=== PATIENT | female | born 1955 ===

== ENCOUNTER 2016-06-18 10:26 | Observation (INO) | payer MEDICAID ==
[2016-06-18] VITALS (10 sets, daily range): BP systolic 105–144; BP diastolic 66–93; PULSE 64–121; RESP 16; TEMP 97.5–98.7; O2SAT 96–100
[~2016-06-18] VITALS: Ht 154.9 cm; Wt 51.3 kg
[2016-06-18] MEDS ORDERED: NITROGLYCERIN 0.4 MG SL 25 TABS/BTL SL STA (10:51)
[2016-06-18] MEDS ORDERED: ASPIRIN 81 MG CHEW TAB PO STA (10:51)
[2016-06-18] MEDS ORDERED: SODIUM CHLOR 0.9% 1000 ML INJ 1,000 ML IV ONE (10:51)
--- NOTE | 2016-06-18 10:56 | PD ---
HPI Chief Complaint: Respiratory Symptoms Time Seen by Provider: 10:42 Travel History International Travel<30 days: No Contact w/Intl Traveler<30days: No Traveled to known affect area: No History of Present Illness HPI This 60-year-old female says she has been sick for the last 4 or 5 days. She's been having squeezing sensation around her chest. She has been short of breath with minimal exertion. She has been sweaty at times. She has no known history of heart disease. She smokes a pack a day. She has not had fever or chills. She says that last night she broke out in a sweat. She has been feeling extremely tired. She has been nauseated at times. She has no history of hypertension or diabetes. She has felt her heart racing at times PFSH Past Medical History Hx Anticoagulant Therapy: No Cardiovascular Problems: Yes (CHOL) High Cholesterol: Yes Diabetes: No Diminished Hearing: No GERD: Yes Tetanus Vaccination: Unknown ?: Not Social History Alcohol Use: Yes (occ) Tobacco Use: Yes (1ppd) Substance Use: No Allergies-Medications (Allergen,Severity, Reaction): Coded Allergies: Darvocet-N 100 (Verified Allergy, Severe, 06/18/16) Percocet (Verified Allergy, Severe, 06/18/16) Review of Systems General / Constitutional: No: Fever, Chills Eyes: No: Diploplia, Blurred Vision HENT: No: Headaches, Vertigo Cardiovascular: Positive: Chest Pain or Discomfort, Tachycardia Respiratory: Positive: Shortness of Breath Gastrointestinal: Positive: Nausea Genitourinary: No: Urgency, Frequency Musculoskeletal: No: Myalgias Skin: No Rash, No Dryness Neurologic: Positive: Weakness Endocrine: No: Heat Intolerance Hematologic/Lymphatic: No: Easy Bruising Physical Exam Narrative GENERAL: Well-developed female SKIN: Focused skin assessment warm/dry. HEAD: Atraumatic. Normocephalic. EYES: Pupils equal and round. No scleral icterus. No injection or drainage. ENT: No nasal bleeding or discharge. Mucous membranes pink and moist. NECK: Trachea midline. No JVD. CARDIOVASCULAR: Regular rate and rhythm. No murmur appreciated. RESPIRATORY: No accessory muscle use. Clear to auscultation. Breath sounds equal bilaterally. GASTROINTESTINAL: Abdomen soft, non-tender, nondistended. Hepatic and splenic margins not palpable. MUSCULOSKELETAL: No obvious deformities. No clubbing. No cyanosis. No edema. NEUROLOGICAL: Awake and alert. No obvious cranial nerve deficits. Motor grossly within normal limits. Normal speech. PSYCHIATRIC: Appropriate mood and affect; insight and judgment normal. Data Data Last Documented VS Vital Signs Date Time Temp Pulse Resp B/P Pulse Ox O2 Delivery O2 Flow Rate FiO2 06/18/16 11:02 100 Room Air 06/18/16 10:39 100 20 06/18/16 10:30 98.7 134/93 Orders Troponin I (06/18/16 10:51) Ckmb (Isoenzyme) Profile (06/18/16 10:51) Complete Blood Count With Diff (06/18/16 10:51) Basic Metabolic Panel (Bmp) (06/18/16 10:51) Magnesium (Mg) (06/18/16 10:51) Prothrombin Time / Inr (Pt) (06/18/16 10:51) Act Partial Throm Time (Ptt) (06/18/16 10:51) B-Type Natriuretic Peptide (06/18/16 10:51) Chest, Single Ap (06/18/16 10:51) Electrocardiogram (06/18/16 10:51) Oxygen Administration (06/18/16 10:51) Iv Access Insert/Monitor (06/18/16 10:51) Oximetry (06/18/16 10:51) Sodium Chlor 0.9% 1000 Ml Inj (Ns 1000 M (06/18/16 10:51) Sodium Chloride 0.9% Flush (Ns Flush) (06/18/16 11:00) Aspirin Chew (Aspirin Chew) (06/18/16 10:51) Nitroglycerin Sl (Nitrostat Sl) (06/18/16 10:51) Nitroglycerin-Dextrose Inj (Nitroglyceri (06/18/16 11:00) Admit Order (Ed Use Only) (06/18/16 11:20) Labs Laboratory Tests Test 06/18/16 10:56 White Blood Count 6.7 TH/MM3 Red Blood Count 5.05 MIL/MM3 Hemoglobin 15.8 GM/DL Hematocrit 47.3 % Mean Corpuscular Volume 93.8 FL Mean Corpuscular Hemoglobin 31.3 PG Mean Corpuscular Hemoglobin 33.3 % Concent Red Cell Distribution Width 12.8 % Platelet Count 345 TH/MM3 Mean Platelet Volume 7.2 FL Neutrophils (%) (Auto) 59.5 % Lymphocytes (%) (Auto) 33.1 % Monocytes (%) (Auto) 5.9 % Eosinophils (%) (Auto) 0.6 % Basophils (%) (Auto) 0.9 % Neutrophils # (Auto) 4.0 TH/MM3 Lymphocytes # (Auto) 2.2 TH/MM3 Monocytes # (Auto) 0.4 TH/MM3 Eosinophils # (Auto) 0.0 TH/MM3 Basophils # (Auto) 0.1 TH/MM3 CBC Comment DIFF FINAL Differential Comment Prothrombin Time 11.5 SEC Prothromb Time International 1.0 RATIO Ratio Activated Partial 30.3 SEC Thromboplast Time Sodium Level 138 MEQ/L Potassium Level 3.7 MEQ/L Chloride Level 100 MEQ/L Carbon Dioxide Level 24.8 MEQ/L Anion Gap 13 MEQ/L Blood Urea Nitrogen 9 MG/DL Creatinine 0.77 MG/DL Estimat Glomerular Filtration 77 ML/MIN Rate Random Glucose 103 MG/DL Calcium Level 9.7 MG/DL Magnesium Level 2.1 MG/DL Total Creatine Kinase 72 U/L Troponin I LESS THAN 0.02 NG/ML B-Type Natriuretic Peptide 12 PG/ML MDM Medical Decision Making Medical Screen Exam Complete: Yes Emergency Medical Condition: Yes Medical Record Reviewed: Yes Differential Diagnosis Differential includes unstable angina, myocardial infarction, COPD Narrative Course EKG shows sinus tachycardia at a rate of 104. There is 1.5 mm of elevation in V1 and 1 mm of elevation in V2. There are fairly diffuse ST-T wave abnormalities. I have discussed the case with Dr. Carrasquillo requests she be transferred to [facility] though he does not think she is a STEMI at this time. Her troponin is negative. Patient reports improvement in the tightness in her chest after nitroglycerin. Diagnosis Primary Impression: Unstable angina Admitting Information Admitting Physician Requests: Admit Zohaib Tyson MD June 18, 2016 10:56
[2016-06-18] MEDS ORDERED: SODIUM CHLORIDE 0.9% FLUSH 10 ML FLUSH IVF PRN (11:00)
[2016-06-18] MEDS ORDERED: NITROGLYCERIN-DEXTROSE INJ 250 ML IV SCH (11:00)
[2016-06-18 11:02] LABS: BASOPHIL # 0.1 TH/MM3 (0-0.2); BASOPHIL % 0.9 % (0.0-2.0); EOSINOPHIL % 0.6 % (0.0-4.0); HEMATOCRIT 47.3 % (35.0-46.0); HEMO FLAGS DIFF FINAL; LYMPH % 33.1 % (9.0-44.0); LYMPHOCYTE # 2.2 TH/MM3 (1.0-4.8); MEAN CELL VOLUME 93.8 FL (80.0-100.0); MEAN CORPUSCULAR HEMOGLOBIN 31.3 PG (27.0-34.0); MEAN CORPUSCULAR HGB CONC 33.3 % (32.0-36.0); MONO % 5.9 % (0.0-8.0); NEUT % 59.5 % (16.0-70.0); PLATELET COUNT 345 TH/MM3 (150-450); RED BLOOD COUNT 5.05 MIL/MM3 (4.00-5.30); RED CELL DISTRIBUTION WIDTH 12.8 % (11.6-17.2); WHITE BLOOD COUNT 6.7 TH/MM3 (4.0-11.0)
[2016-06-18 11:11] LABS: CHLORIDE 100 MEQ/L (98-107); POTASSIUM 3.7 MEQ/L (3.5-5.1); SODIUM (NA) 138 MEQ/L (136-145)
[2016-06-18 11:15] LABS: APTT (PATIENT) 30.3 SEC (24.3-30.1); PROTHROMBIN TIME - PATIENT 11.5 SEC (9.8-11.6)
[2016-06-18 11:16] LABS: ANION GAP 13 MEQ/L (5-15); BICARBONATE 24.8 MEQ/L (21.0-32.0); BLOOD UREA NITROGEN 9 MG/DL (7-18); MAGNESIUM 2.1 MG/DL (1.5-2.5)
[2016-06-18 11:20] LABS: GLOMERULAR FILTRATION RATE 77 ML/MIN (>89)
[2016-06-18 11:23] LABS: CREATINE KINASE 72 U/L (26-192)
--- NOTE | 2016-06-18 11:30 | RADHPO ---
EXAM DATE/TIME: 06/18/2016 11:05 [facility] COMPARISON: No previous studies available for comparison. INDICATIONS : Patient has felt chest tightness and dizziness for a week. MEDICAL HISTORY : Spinal stenosis. SURGICAL HISTORY : Fusion, cervical. ENCOUNTER: Initial ACUITY: 1 week PAIN SCORE: 0/10 LOCATION: Bilateral chest FINDINGS: A single view of the chest demonstrates hyperinflation which can be seen with COPD. Bibasilar scarrin g. Calcified granuloma left lower lung laterally. No infiltrates are seen. Heart is normal in size. The mediastinal contours are unremarkable. Osseous structures are intact. CONCLUSION: Hyperinflation which can be seen with COPD. No evidence for an infiltrate. Amanuel Hyde MD on June 18, 2016 at 11:24 Board Certified Radiologist. This report was verified electronically.
[2016-06-18] MEDS ORDERED: PRAVASTATIN SOD 10 MG TAB PO ONE (12:30)
[2016-06-18] MEDS ORDERED: MORPHINE SULFATE 4 MG/ML INJ IV PRN (12:30)
--- NOTE | 2016-06-18 12:34 | HHI.HP ---
HPI Service [facility] Primary Care Physician Zafar Koroma MD Admission Diagnosis UNSTABLE ANGINA Diagnoses: Chief Complaint: Chest pain Travel History International Travel<30 Days: No Contact w/Intl Traveler <30 Da: No Traveled to Known Affected Are: No History of Present Illness 60 years old female with history of cervical stenosis came to the ED complaining of one week chest tightness more on the center of the chest about 8 out of 10 comes and goes along with short of breath, diaphoresis, lightheadedness, the worst with exertion but it can comes on resting even. He denied any cough or sore throat, minimal diarrhea, patient denied any history of COPD, she smoked when she was in her 20s but she quit smoking 35 years ago. No fever. In ED her EKG showed what looks like ST elevation on V1 and V2, however latex caster was contacted and faxed over the EKG he did not think it's STEMI alert at this point, later on cardiac enzyme came back first set negative. I discussed with the ED physician, cardiology requested transfer to [facility] Review of Systems All systems reviewed and was positive for what is mentioned in history of present illness otherwise negative Past Family Social History Past Medical History Cervical stenosis status post surgery Hyperlipidemia Past Surgical History As above Allergies: Coded Allergies: Darvocet-N 100 (Verified Allergy, Severe, 06/18/16) Percocet (Verified Allergy, Severe, 06/18/16) Family History Review with the patient,not aware of significant medical history runs in his family Social History Quit smoking 30 years ago, no alcohol or illicit drug abuse Physical Exam Vital Signs Vital Signs Date Time Temp Pulse Resp B/P Pulse Ox O2 Delivery O2 Flow Rate FiO2 06/18/16 12:08 100 Room Air 06/18/16 12:08 100 16 126/84 100 Room Air 06/18/16 11:02 100 Room Air 06/18/16 11:02 100 Room Air 06/18/16 10:39 100 20 99 Room Air 06/18/16 10:30 98.7 121 16 134/93 99 Physical Exam GENERAL: This is a well-nourished, well-developed patient, in no apparent distress. SKIN: No rashes, warm and dry HEAD: Atraumatic. Normocephalic. EYES: Pupils equal round and reactive. Extraocular motions intact. No scleral icterus. ENT: Nose without bleeding, or drainage, Airway patent. NECK: Trachea midline. Supple CARDIOVASCULAR: Regular rate and rhythm without murmurs, gallops, or rubs. RESPIRATORY: Fair air entry bilaterally. No wheezes, rales, or rhonchi. GASTROINTESTINAL: Abdomen soft, non-tender, nondistended. Positive bowel sounds MUSCULOSKELETAL: Extremities without clubbing, cyanosis, or edema. Pedal pulses appreciated NEUROLOGICAL: Awake and alert. Moves all extremity. Normal speech.no focal neurological deficit Laboratory Laboratory Tests Test 06/18/16 10:56 White Blood Count 6.7 Red Blood Count 5.05 Hemoglobin 15.8 Hematocrit 47.3 Mean Corpuscular Volume 93.8 Mean Corpuscular Hemoglobin 31.3 Mean Corpuscular Hemoglobin 33.3 Concent Red Cell Distribution Width 12.8 Platelet Count 345 Mean Platelet Volume 7.2 Neutrophils (%) (Auto) 59.5 Lymphocytes (%) (Auto) 33.1 Monocytes (%) (Auto) 5.9 Eosinophils (%) (Auto) 0.6 Basophils (%) (Auto) 0.9 Neutrophils # (Auto) 4.0 Lymphocytes # (Auto) 2.2 Monocytes # (Auto) 0.4 Eosinophils # (Auto) 0.0 Basophils # (Auto) 0.1 CBC Comment DIFF FINAL Differential Comment Prothrombin Time 11.5 Prothromb Time International 1.0 Ratio Activated Partial 30.3 Thromboplast Time Sodium Level 138 Potassium Level 3.7 Chloride Level 100 Carbon Dioxide Level 24.8 Anion Gap 13 Blood Urea Nitrogen 9 Creatinine 0.77 Estimat Glomerular Filtration 77 Rate Random Glucose 103 Calcium Level 9.7 Magnesium Level 2.1 Total Creatine Kinase 72 Troponin I LESS THAN 0.02 B-Type Natriuretic Peptide 12 Result Diagram: 06/18/16 1056 06/18/16 1056 Imaging Last Impressions Chest X-Ray 06/18/16 1051 Signed Impressions: Service Date/Time: June 11:05 - CONCLUSION: Hyperinflation which can be seen with COPD. No evidence for an infiltrate. Amanuel Hyde MD Assessment and Plan Assessment and Plan 60 years old female presented with one-week worsening of chest tightness or short of breath -Chest pain or short of breath EKG questionable ST elevation in precordial lead rule out ACS versus PE And was given nitroglycerin, aspirin, oxygen, morphine First set of cardiac enzymes negative continue cycling Cardiology consulted, EKG reviewed personally by me discussed with the ED physician, and it was discussed with her latex caster by the ED physician stated it's not a STEMI alert him about requested transfer to [facility] Started low dose beta yakov, patient has history of hyperlipidemia we'll give a dose of pravastatin , started on Lovenox full into atrial fibrillation Will check d-dimer do CTA to rule out PE once cardiac issues ruled out -Hyperlipidemia continue statin -History of cervical stenosis -DVT prophylaxis patient was given dose of Lovenox Discussed Condition With Patient and ED physician Angel Yun MD June 18, 2016 12:34
[2016-06-18] MEDS ORDERED: PILL SPLITTER OTHER PRN (13:00)
[2016-06-18] MEDS: METOPROLOL TARTRATE 25 MG TAB PO SCH ×2 (13:20→20:47)
[2016-06-18] MEDS: ENOXAPARIN SODIUM 60 MG/0.6 ML SYRINGE SQ SCH (13:22)
[2016-06-18 13:35] LABS: CREATINE KINASE 64 U/L (26-192)
--- NOTE | 2016-06-18 15:19 | EKG ---
Date Performed: 06/18/2016 Time Performed: 10:35:42 PTAGE: 60 years EKG: Sinus tachycardia Possible left atrial abnormality Extensive ST changes are nonspecific Bor derline ECG NO PREVIOUS TRACING DOCTOR: Kenji Joseph Interpretating Date/Time 06/18/2016 15:18:32
[2016-06-19] VITALS (20 sets, daily range): BP systolic 113–138; BP diastolic 75–87; PULSE 58–86; RESP 18; TEMP 97.7–98; O2SAT 96–98
[2016-06-19] MEDS: ENOXAPARIN SODIUM 60 MG/0.6 ML SYRINGE SQ SCH ×2 (00:35→11:50)
[2016-06-19 03:52] LABS: CREATINE KINASE 80 U/L (26-192)
[2016-06-19] MEDS: METOPROLOL TARTRATE 25 MG TAB PO SCH ×2 (07:44→21:14)
--- NOTE | 2016-06-19 08:29 | HHI.PR ---
Subjective Remarks Had chest pain last night, says felt much better after meds. Says she had a stress test ~ 10 years ago and was normal. Complaints of slight headache. Also thinks she has gas. Last BM was 3 days ago. Feels palpitations at times. No associated sob, diaphoresis, lightheadedness or nausea. No fever or chills. Objective Vitals Vital Signs Date Time Temp Pulse Resp B/P Pulse Ox O2 Delivery O2 Flow Rate FiO2 06/19/16 05:00 64 06/19/16 03:00 60 06/19/16 03:00 97.7 64 120/80 96 06/19/16 01:00 60 06/18/16 23:00 64 06/18/16 23:00 97.5 64 114/71 97 06/18/16 21:00 86 06/18/16 19:00 97.9 76 144/86 96 06/18/16 19:00 76 06/18/16 15:27 69 16 116/70 100 Room Air 06/18/16 15:27 Room Air 06/18/16 14:23 81 16 105/66 99 Room Air 06/18/16 13:24 100 16 100 Room Air 06/18/16 13:24 90 16 114/72 99 Room Air 06/18/16 12:08 100 Room Air 06/18/16 12:08 100 16 126/84 100 Room Air 06/18/16 11:02 100 Room Air 06/18/16 11:02 100 Room Air 06/18/16 10:39 100 20 99 Room Air 06/18/16 10:30 98.7 121 16 134/93 99 I/O 06/18/16 06/18/16 06/18/16 06/19/16 06/19/16 06/19/16 07:00 15:00 23:00 07:00 15:00 23:00 Intake Total 309 ml Balance 309 ml Intake Oral 240 ml IV Total 69 ml # Voids 2 Result Diagram: 06/18/16 1056 06/18/16 1056 Imaging Last Impressions Chest X-Ray 06/18/16 1051 Signed Impressions: Service Date/Time: June 11:05 - CONCLUSION: Hyperinflation which can be seen with COPD. No evidence for an infiltrate. Amanuel Hyde MD Objective Remarks GENERAL: This is a well-nourished, well-developed patient, in no apparent distress. SKIN: No rashes, warm and dry HEAD: Atraumatic. Normocephalic. EYES: Pupils equal round and reactive. Extraocular motions intact. No scleral icterus. ENT: Nose without bleeding, or drainage, Airway patent. NECK: Trachea midline. Supple CARDIOVASCULAR: Regular rate and rhythm without murmurs, gallops, or rubs. RESPIRATORY: Fair air entry bilaterally. No wheezes, rales, or rhonchi. GASTROINTESTINAL: Abdomen soft, non-tender, nondistended. Positive bowel sounds MUSCULOSKELETAL: Extremities without clubbing, cyanosis, or edema. Pedal pulses appreciated NEUROLOGICAL: Awake and alert. Moves all extremity. Normal speech.no focal neurological deficit A/P Assessment and Plan 60 years old female presented with one-week worsening of chest tightness or short of breath Chest pain or short of breath EKG questionable ST elevation in precordial lead rule out ACS versus PE Received nitroglycerin, aspirin, oxygen, morphine Cardiac enzymes negative x3 Cardiology consulted, EKG reviewed and it was discussed with her film reader by the ED physician stated it's not a STEMI alert him about requested transfer to [facility]. Started low dose beta yakov, patient has history of hyperlipidemia, cont pravastatin , Lovenox full into atrial fibrillation Will check d-dimer if positive will do CTA to rule out PE once cardiac issues ruled out -Hyperlipidemia continue statin -History of cervical stenosis -DVT prophylaxis patient was given dose of Lovenox Discussed Condition With Patient, nurse Pending improvement and clearance form cardiology Fernanda Field MD June 19, 2016 08:29
--- NOTE | 2016-06-19 10:48 | MB ---
cc: BESS ROBLES M.D. DATE OF CONSULTATION 06/19/2016 REASON FOR CONSULTATION Lydia is a 60-year lady who complains of being sick for the past four to five days, also admits to chest pain, dyspnea on exertion, otherwise denies any fevers, chills, cough, GI or bleeding, pain, orthopnea, syncope or dizziness. She does complain of fatigue. PAST MEDICAL HISTORY Includes hyperlipidemia. SOCIAL HISTORY She drinks alcohol occasionally. She does smoke a pack of cigarettes a day. ALLERGIES DARVOCET AND PERCOCET MEDICATIONS 1. Lovenox 50 subcu q.12 h. 2. Metoprolol 12.5 b.i.d. 3. Aspirin 325 times one in the ER PHYSICAL EXAM VITAL SIGNS: Blood pressure 120/76, pulse 77, respiratory rate 18, temperature 98.0. GENERAL: She is alert and oriented times three in no acute distress. NECK: Supple. No JVD or bruit. CARDIOVASCULAR: S1, S2. No murmurs, rubs or gallops. LUNGS: Clear to auscultation bilaterally. ABDOMEN: Soft, nontender, nondistended with positive bowel sounds. EXTREMITIES: Without extremity edema. LABORATORY DATA White count 6.7, hemoglobin 15.8, hematocrit 47.3, platelet count 345, troponin is less than 0.2 x3. Sodium 138, potassium 3.74, chloride 100, bicarb 24.8, BUN 9, creatinine 0.77. BNP is 12, INR is 1.0. Chest x-ray, hyperinflation which can be seen with COPD. No evidence for infiltrate. EKG, normal sinus tachycardia at 104 beats per minute, nonspecific ST-T wave changes. FINAL DIAGNOSIS 1. Chest pain 2. Tobacco use 3. Possible COPD 4. Unsteady gait 5. The patient knows she has severe knee pain and is unable to walk on the treadmill. DISCUSSION AT THIS POINT IN TIME I have recommended a Lexiscan sestamibi. I have counseled the patient to stop smoking and strongly recommended smoking cessation. She has received aspirin already and is on a beta yakov. Further recommendations pending the results of her Lexiscan sestamibi. MD ELGIN Balderrama/SILVERIO /10:30 AM /10:41 AM
[2016-06-19] MEDS ORDERED: REGADENOSON INJ 0.4 MG/5 ML SYR ONE (14:33)
--- NOTE | 2016-06-19 16:12 | RADRPT ---
EXAM DATE/TIME: 06/19/2016 14:05 [facility] COMPARISON: No previous studies available for comparison. INDICATIONS : Left sided chest pain for five days. Angina. DOSE: 26.8 mCi Tc99m Myoview at stress. 8.7 mCi Tc99m Myoview at rest. 0.4 mg Lexiscan STRESS SYMPTOMS: Hot, diaphoresis and chest tightness. EJECTION FRACTION: 70% MEDICAL HISTORY : Hyperlipidemia. SURGICAL HISTORY : None. ENCOUNTER: Initial ACUITY: 4 - 6 days PAIN SCALE: 8/10 LOCATION: Left chest TECHNIQUE: The patient underwent pharmacologic stress with infusion of prescribed dose. Continuous ECG tracing was monitored during stress. Gated SPECT imaging was performed after stress and conventional SPECT i maging was performed at rest. The examination was performed on a SPECT/CT scanner, both attenuation and non-corrected datasets were reviewed. FINDINGS: Moderate gut activity does obscure the inferior wall. The best perfused myocardium in the anterior lateral wall followed by the septum. There is an small fixed defect in the anterior septal region. There is no redistribution. The ejection fraction is 70 % normal wall motion. CONCLUSION: Negative for stress-induced ischemia. RISK CATEGORY: Low (<1% Annual Mortality Rate) Ren Reilly MD FACR on June 19, 2016 at 16:08 Board Certified Radiologist. This report was verified electronically.
[2016-06-20] VITALS (12 sets, daily range): BP systolic 104–128; BP diastolic 71–80; PULSE 60–88; RESP 15–20; TEMP 97.5–98.7; O2SAT 94–98
[2016-06-20] MEDS: ENOXAPARIN SODIUM 60 MG/0.6 ML SYRINGE SQ SCH ×2 (00:12→12:11)
[2016-06-20 06:53] LABS: AUTOMATED NEUTROPHIL # 3.3 TH/MM3 (1.8-7.7); BASOPHIL # 0.1 TH/MM3 (0-0.2); BASOPHIL % 0.8 % (0.0-2.0); EOSINOPHIL # 0.1 TH/MM3 (0-0.4); EOSINOPHIL % 0.9 % (0.0-4.0); HEMATOCRIT 43.3 % (35.0-46.0); HEMO FLAGS DIFF FINAL; LYMPH % 40.4 % (9.0-44.0); LYMPHOCYTE # 2.6 TH/MM3 (1.0-4.8); MEAN CELL VOLUME 94.2 FL (80.0-100.0); MEAN CORPUSCULAR HEMOGLOBIN 31.1 PG (27.0-34.0); MONO % 7.2 % (0.0-8.0); NEUT % 50.7 % (16.0-70.0); PLATELET COUNT 310 TH/MM3 (150-450); RED BLOOD COUNT 4.59 MIL/MM3 (4.00-5.30); RED CELL DISTRIBUTION WIDTH 12.8 % (11.6-17.2); WHITE BLOOD COUNT 6.5 TH/MM3 (4.0-11.0)
--- NOTE | 2016-06-20 07:18 | HHI.DS ---
Discharge Summary Admission Date June 18, 2016 at 11:22 Discharge Date: June 20, 2016 Admitting Diagnosis UNSTABLE ANGINA (1) Unstable angina ICD Code: I20.0 Diagnosis: Principal (2) Anxiety ICD Code: F41.9 Diagnosis: Principal Procedures none Brief History - From Admission 60 years old female with history of cervical stenosis came to the ED complaining of one week chest tightness more on the center of the chest about 8 out of 10 comes and goes along with short of breath, diaphoresis, lightheadedness, the worst with exertion but it can comes on resting even. He denied any cough or sore throat, minimal diarrhea, patient denied any history of COPD, she smoked when she was in her 20s but she quit smoking 35 years ago. No fever. In ED her EKG showed what looks like ST elevation on V1 and V2, however rubber mill tender was contacted and faxed over the EKG he did not think it's STEMI alert at this point, later on cardiac enzyme came back first set negative. I discussed with the ED physician, cardiology requested transfer to [facility] CBC/BMP: 06/20/16 0550 06/18/16 1056 Significant Findings Laboratory Tests Test 06/18/16 06/18/16 06/19/16 10:56 13:00 02:43 Hemoglobin 15.8 GM/DL (11.6-15.3) Hematocrit 47.3 % (35.0-46.0) Activated Partial 30.3 SEC Thromboplast Time (24.3-30.1) Estimat Glomerular Filtration 77 ML/MIN (>89) Rate Troponin I LESS THAN 0.02 LESS THAN 0.02 LESS THAN 0.02 NG/ML NG/ML NG/ML (0.02-0.05) (0.02-0.05) (0.02-0.05) Imaging Last Impressions Myocardial Perfusion Scan Nuc Med 06/19/16 0000 Signed Impressions: Service Date/Time: Sunday, June 19, 2016 14:05 - CONCLUSION: Negative for stress-induced ischemia. RISK CATEGORY: Low (<1%% Annual Mortality Rate) Ren Reilly MD FACR Chest X-Ray 06/18/16 1051 Signed Impressions: Service Date/Time: June 11:05 - CONCLUSION: Hyperinflation which can be seen with COPD. No evidence for an infiltrate. Amanuel Hyde MD PE at Discharge GENERAL: This is a well-nourished, well-developed patient, in no apparent distress. SKIN: No rashes, warm and dry HEAD: Atraumatic. Normocephalic. EYES: Pupils equal round and reactive. Extraocular motions intact. No scleral icterus. ENT: Nose without bleeding, or drainage, Airway patent. NECK: Trachea midline. Supple CARDIOVASCULAR: Regular rate and rhythm without murmurs, gallops, or rubs. RESPIRATORY: Fair air entry bilaterally. No wheezes, rales, or rhonchi. GASTROINTESTINAL: Abdomen soft, non-tender, nondistended. Positive bowel sounds MUSCULOSKELETAL: Extremities without clubbing, cyanosis, or edema. Pedal pulses appreciated NEUROLOGICAL: Awake and alert. Moves all extremity. Normal speech.no focal neurological deficit Pt update on day of discharge She is very anxious, crying. Says she used to take xanax and she is also started on SRRI by her PCP . She denies any chest pain. Says she wants to go home. No fever or chills. No n/v/d/c. Hospital Course 60 years old female presented with one-week worsening of chest tightness or short of breath Chest pain or short of breath EKG questionable ST elevation in precordial lead rule out ACS versus PE Received nitroglycerin, aspirin, oxygen, morphine Cardiac enzymes negative x3 Cardiology consulted, EKG reviewed and it was discussed with her rubber mill tender by the ED physician stated it's not a STEMI alert him about requested transfer to [facility]. Started low dose beta yakov, patient has history of hyperlipidemia, cont pravastatin , Lovenox full into atrial fibrillation D-dimer is negative, no PE Had stress test low probability. Patient is anxious, likely chest pain related to anxiety -Hyperlipidemia continue statin has meds at home sumvastatin -History of cervical stenosis. To follwo up as OP wit pain management Anxiety: xanax as need , patien tto follwo up as OP , adviced staring SSRI as OP. Patient counselled regarding BZs use. She expressed understanding. -DVT prophylaxis patient was given dose of Lovenox Discussed Condition With Patient, nurse Pending improvement and clearance form cardiology Patient improved, she was discharged home in fairly good condition, to follow up as OP with PCP and consultants. Pt Condition on Discharge: Stable Discharge Disposition: Discharge Home Discharge Time: > 30 minutes Discharge Instructions DIET: Follow Instructions for: Heart Healthy Diet Activities you can perform: Regular-No Restrictions Activities to Avoid: Driving for 24 hrs, Driving Follow up Referrals: PCP Follow-up - 3-5 Days New Medications: Alprazolam (Xanax) 0.5 Mg Tab 0.5 MG PO BID PRN ANXIETY #10 Ref 0 TAB Fernanda Field MD June 20, 2016 07:18
[2016-06-20 07:21] LABS: BICARBONATE 26.9 MEQ/L (21.0-32.0); POTASSIUM 3.9 MEQ/L (3.5-5.1)
[2016-06-20] MEDS: METOPROLOL TARTRATE 25 MG TAB PO SCH (08:07)
[2016-06-20] MEDS ORDERED: ALPR.5 PO (11:38)
[2016-06-20] MEDS ORDERED: ALPRAZolam 0.5 MG TAB PO PRN (11:45)
== END 2016-06-20 13:59 | disposition home or self-care (01) ==
LOC: PHED 10:26 → INTOOBSV 11:22 → PHEDA 11:22 → HCIS 17:26
PROVIDERS: ADMIT Hospitalist; ATTEND Hospitalist
DX: R07.89 Other chest pain (principal); R06.02 Shortness of breath; R53.83 Other fatigue; F41.9 Anxiety disorder, unspecified; E78.5 Hyperlipidemia, unspecified; M48.02 Spinal stenosis, cervical region; F17.210 Nicotine dependence, cigarettes, uncomplicated; E78.00 Pure hypercholesterolemia, unspecified; K21.9 Gastro-esophageal reflux disease without esophagitis; Z88.5 Allergy status to narcotic agent
CPT/HCPCS: 71010; 78452; 80048; 82550; 83735; 83880; 84484; 85025; 85379; 85610; 85730; 93005; 93017; 99285; A9502; G0378; J1650; J2270; J2785; J7030